=== PATIENT | female | born 1990 | race African-American/Black ===

== ENCOUNTER 2017-05-03 21:03 | Emergency (ER) | payer OTHER, MEDICAID ==
[~2017-05-03 21:03] MED LIST: OXYC1SOL5 PO; PREN0.01 PO
[2017-05-03 21:33] VITALS: BP 134/89; PULSE 81; RESP 18; TEMP 98.5; O2SAT 99
[2017-05-03 22:34] LABS: BACTERIA, URINE MANY /hpf; BILIRUBIN, URINE NEG (NEG); BLOOD, URINE NEG (NEG); GLUCOSE,URINE NEG (NEG); KETONE, URINE NEG (NEG); MUCUS URINE FEW /lpf (OCC); NITRITE,URINE NEG (NEG); SQUAMOUS EPITHELIAL CELL URINE 3 /hpf (0-5); URINE COLOR YELLOW (YELLW/STRAW); URINE LEUKOCYTE ESTERASE MOD (NEG)
[2017-05-03] MEDS ORDERED: MACR100C2 PO (22:38)
[2017-05-03] MEDS ORDERED: PHEN0.4T PO (22:39)
--- NOTE | 2017-05-03 22:39 | PD ---
HPI . Pelvic pain Chief Complaint: [employer] Problem/Complaint Time Seen by Provider: 21:46 Travel History International Travel<30 days: No Contact w/Intl Traveler<30days: No Traveled to known affect area: No History of Present Illness HPI This patient presents with chief complaint of pelvic pain. Onset was a week ago. She is also complaining with dysuria and frequency. Triage got a history of a vaginal discharge but the patient tells me that "feels wet down there." She has not noted any true vaginal discharge. She states that her symptoms are getting progressively worse. She rates her abdominal cramping at 10/10. She has not taken anything for prior to arrival. She has not noted any modifying factors. PFSH Past Medical History Cancer: No Cardiovascular Problems: No Cerebrovascular Accident: No Endocrine: No GERD: No Genitourinary: No Hiatal Hernia: No Immune Disorder: No Musculoskeletal: No Neurologic: Yes Psychiatric: No Reproductive: No Respiratory: No Migraines: No Ulcer: No ?: Not LMP: 04/07/17 : 2 Para: 1 Miscarriage: 1 : 0 Social History Alcohol Use: No Tobacco Use: No Substance Use: No Allergies-Medications (Allergen,Severity, Reaction): Coded Allergies: No Known Allergies (Verified , 01/23/15) Reported Meds & Prescriptions Reported Meds & Active Scripts Active Oxycodone/Acetaminophen 5 mg/325 mg 1 Tab Tab 1 Tab PO Q4H PRN Reported Vit ( Plus) (Prenat Multivit/[place]/Iron/Folic Ac) Tab 1 Tab PO DAILY Review of Systems Except as stated in HPI: all other systems reviewed are Neg General / Constitutional: No: Fever, Chills Gastrointestinal: No: Nausea, Vomiting Genitourinary: Positive: Urgency, Frequency, Dysuria, Pelvic Pain Physical Exam Narrative GENERAL: Awake and alert and in no acute distress. SKIN: Warm and dry. HEAD: Normocephalic/atraumatic. EYES: Pupils are equal. Extraocular movements are intact. NECK: Normal range of motion. RESPIRATORY: Nonlabored respirations. ABDOMEN: Soft with suprapubic tenderness. : Normal female. White discharge in the vaginal vault which appears to physiologic. No cervical motion tenderness. No adnexal tenderness or masses. MUSCULOSKELETAL: Atraumatic. NEUROLOGICAL: Nonfocal. PSYCHIATRIC: Appropriate mood and affect. Data Data Last Documented VS Vital Signs Date Time Temp Pulse Resp B/P (MAP) Pulse Ox O2 Delivery O2 Flow Rate FiO2 05/03/17 21:33 98.5 81 18 134/89 (104) 99 Orders Orders Urinalysis - C+S If Indicated (05/03/17 21:10) Ed Urine Pregnancytest Poc (05/03/17 21:10) Gc And Chlamydia Pcr (05/03/17 21:47) Wet Prep Profile (05/03/17 21:47) Labs Laboratory Tests Test 05/03/17 22:00 [facility] Medical Decision Making Medical Screen Exam Complete: Yes Emergency Medical Condition: Yes Differential Diagnosis Differential diagnosis of pelvic pain includes but is not limited to UTI, PID, ectopic , spontaneous AB, constipation, viral illness Narrative Course This patient presents with the chief complaint of pelvic pain. She has associated urinary symptoms. UA shows moderate leukocyte esterase, 15 white cells, many bacteria. She will be treated for urinary tract infection. Diagnosis Primary Impression: Urinary tract infection Qualified Codes: N30.00 - Acute cystitis without hematuria Patient Instructions: General Instructions, Urinary Tract Infection in Women ( [place]) Med/Other Pt SpecificInfo: Prescription(s) given Scripts Phenazopyridine (Pyridium) 100 Mg Tab 200 MG PO Q8H Y for DYSURIA, #10 TAB 0 Refills Prov: Juliane Navarro MD 05/03/17 Nitrofurantoin Monohydrate Macrocrystals (Macrobid) 100 Mg Cap 100 MG PO BID for Infection for 5 Days, #10 CAP 0 Refills Prov: Juliane Navarro MD 05/03/17 Disposition: 01 DISCHARGE HOME Condition: Stable Juliane Navarro MD May 03, 2017 22:39
== END 2017-05-03 22:55 | disposition home or self-care (01) ==
LOC: NEPD 21:03
DX: N30.00 Acute cystitis without hematuria (principal); B96.20 Unspecified Escherichia coli [E. coli] as the cause of diseases classified elsewhere
CPT/HCPCS: 81001; 84703; 87077; 87086; 87186; 87210; 87491; 87591; 99284

== ENCOUNTER 2017-06-05 20:38 | Emergency (ER) | payer MEDICAID, OTHER ==
[~2017-06-05 20:38] MED LIST changes: +MACR100C2 PO; +PHEN0.4T PO
[2017-06-05 20:54] VITALS: BP_SYST 116; BP_DIAS 18; BP_DIAS 81; PULSE 92; RESP 19; TEMP 99.1; O2SAT 100
[2017-06-05] MEDS ORDERED: DICL75TA PO (21:53)
[2017-06-05] MEDS ORDERED: CEPH-460 PO (21:53)
[2017-06-05] MEDS ORDERED: BACT800T5 PO (21:53)
--- NOTE | 2017-06-05 21:57 | PD ---
HPI Chief Complaint: Skin Problem Time Seen by Provider: 21:40 Travel History International Travel<30 days: No Contact w/Intl Traveler<30days: No Traveled to known affect area: No History of Present Illness HPI 27-year-old black female presents to emergency department with complains of a painful swollen area under her right breast for the past week. He has been getting worse and last day or 2. Pain is moderate. No alleviating factors. Exacerbated by rubbing and palpation. She denies any history of skin infections past. No fever chills. No vomiting. Patient informs me she is . PFSH Past Medical History Narrative Medical Gallstones Cancer: No Cardiovascular Problems: No Cerebrovascular Accident: No Endocrine: No GERD: No Genitourinary: No Hiatal Hernia: No Immune Disorder: No Musculoskeletal: No Psychiatric: No Reproductive: No Respiratory: No Migraines: No Ulcer: No Tetanus Vaccination: < 5 Years ?: LMP: 04/10/2017 : 2 Para: 1 Miscarriage: 1 : 0 Past Surgical History Narrative Surgical Cholecystectomy Social History Alcohol Use: No Tobacco Use: No Substance Use: No Allergies-Medications (Allergen,Severity, Reaction): Coded Allergies: No Known Allergies (Verified , 01/23/15) Reported Meds & Prescriptions Reported Meds & Active Scripts Active Cleocin (Clindamycin HCl) 300 Mg Cap 300 Mg PO Q6H 10 Days Pyridium (Phenazopyridine HCl) 100 Mg Tab 200 Mg PO Q8H PRN Macrobid (Nitrofurantoin Monoh/Nitrofur Macro) 100 Mg Cap 100 Mg PO BID 5 Days Oxycodone/Acetaminophen 5-325 mg/5Ml (Oxycodone W/ Acetaminophen) 1 Tab Tab 1 Tab PO Q4H PRN Reported Vit ( Plus) (Prenat Multivit/[place]/Iron/Folic Ac) Tab 1 Tab PO DAILY Review of Systems General / Constitutional: No: Fever Eyes: No: Visual changes HENT: No: Headaches Cardiovascular: No: Chest Pain or Discomfort Respiratory: No: Shortness of Breath Gastrointestinal: No: Abdominal Pain Genitourinary: No: Dysuria Musculoskeletal: No: Pain Skin: Positive Rash, Positive Lumps Neurologic: No: Weakness Psychiatric: No: Depression Endocrine: No: Polydipsia Hematologic/Lymphatic: No: Easy Bruising Physical Exam Narrative GENERAL: This is a well-nourished, well-developed patient, in no apparent distress. Patient's examined in the presence of the nurse. SKIN: There is an area of erythema, induration under the right breast on the anterior chest wall. This measures approximately 3 x 4 cm. This appears to be an abscess. It is indurated but not fluctuant or pointing., ecchymoses or lesions. Warm and dry. HEAD: Atraumatic. Normocephalic. EYES: PERRL, EOMI, no discharge or injection. No scleral icterus. EARS: Clear NOSE: Nasal turbinates appear normal. THROAT: Mucosa pink and moist. Airway patent. NECK: Trachea midline. supple, moves head freely. LUNGS: Clear to auscultation. CV: Regular in rhythm. ABDOMEN: Soft nontender. EXT: No clubbing cyanosis or edema. Data Data Last Documented VS Vital Signs Date Time Temp Pulse Resp B/P (MAP) Pulse Ox O2 Delivery O2 Flow Rate FiO2 06/05/17 20:54 99.1 92 19 116/81 (93) 100 Orders Orders Ed Discharge Order (06/05/17 21:53) Sulfamet-Trimeth Ds 800-160 Mg (Bactrim (06/05/17 22:00) Cephalexin (Keflex) (06/05/17 22:00) Acetamin-Hydrocod 325-5 Mg ([place] 5-325 (06/05/17 22:00) Clindamycin (Cleocin) (06/05/17 22:00) MDM Medical Decision Making Medical Screen Exam Complete: Yes Emergency Medical Condition: Yes Medical Record Reviewed: Yes Differential Diagnosis MDM: High Differential diagnoses: Abscess, folliculitis, cellulitis, lymphangitis, abrasion, contact dermatitis Narrative Course The patient has adamantly refused incision and drainage although she is aware that she will most likely return and have an incision and drainage done in the future. She would like to try antibiotics first. She is given Keflex 500 mg and Cleocin 300 mg by mouth. Right chest wall abscess Diagnosis Primary Impression: right chest wall abscess Patient Instructions: Narcotic given in the ED, General Instructions Additional Instructions: Rest. Elevation. keep clean and dry. Warm compresses Daily wound care with soap, water and Neosporin. Keflex and clindamycin. Tylenol for pain. Follow-up with a primary care doctor in 2-3 days. Return to the ER for any problems. Med/Other Pt SpecificInfo: Prescription(s) given Scripts Clindamycin (Cleocin) 300 Mg Cap 300 MG PO Q6H for Infection for 10 Days, #40 CAP 0 Refills Prov: Oleksandr Vasquez MD 06/05/17 Disposition: 01 DISCHARGE HOME Condition: Stable Cain Card Jun 05, 2017 21:57
[2017-06-05] MEDS ORDERED: CLEO300C2 PO (22:00)
[2017-06-05] MEDS ORDERED: CLINDAMYCIN 150 MG CAP PO ONE (22:00)
[2017-06-05] MEDS ORDERED: SULFAMETHOXAZOLE-TRIMETHOPRIM DS 800-160 MG TAB PO ONE (22:00)
[2017-06-05] MEDS ORDERED: ACETAMINOPHEN/HYDROcodone 325 MG/5 MG TAB PO ONE (22:00)
[2017-06-05] MEDS ORDERED: CEPHALEXIN MONOHYDRATE 500 MG CAP PO ONE (22:00)
== END 2017-06-05 22:16 | disposition home or self-care (01) ==
LOC: NEPK 20:38
DX: O99.719 Diseases of the skin and subcutaneous tissue complicating pregnancy, unspecified trimester (principal); L02.213 Cutaneous abscess of chest wall; Z3A.00 Weeks of gestation of pregnancy not specified
CPT/HCPCS: 99283

== ENCOUNTER 2017-06-12 17:07 | Emergency (ER) | payer MEDICAID ==
[~2017-06-12 17:07] MED LIST changes: +CLEO300C2 PO
== END 2017-06-12 17:49 | disposition left against medical advice (07) ==
LOC: NED 17:07
DX: Z34.90 Encounter for supervision of normal pregnancy, unspecified, unspecified trimester (principal); Z53.21 Procedure and treatment not carried out due to patient leaving prior to being seen by health care provider
CPT/HCPCS: 99281

== ENCOUNTER → 2017-09-07 | Outpatient (CLI) | payer MEDICAID | LOC: HPND 14:31 | PROVIDERS: ATTEND Obstetrics & Gynecology | DX: O35.8XX0 Maternal care for other (suspected) fetal abnormality and damage, not applicable or unspecified (principal); O36.5920 Maternal care for other known or suspected poor fetal growth, second trimester, not applicable or unspecified | CPT/HCPCS: 76811; 76817 ==